=== PATIENT | female | born 1990 | race Caucasian/White ===

== ENCOUNTER 2020-05-29 16:09 | Emergency (ER) | payer BC ==
[~2020-05-29] VITALS: Ht 165.1 cm; Wt 45.4 kg
== END 2020-05-29 21:31 | disposition home or self-care (01) ==
LOC: ER 16:09
DX: N39.0 Urinary tract infection, site not specified (principal); B95.7 Other staphylococcus as the cause of diseases classified elsewhere; R31.0 Gross hematuria

== ENCOUNTER 2021-01-09 14:06 | Outpatient (CLI) | payer BC | END 2021-01-09 14:11 | disposition home or self-care (01) | LOC: RAD 14:06 | PROVIDERS: ATTEND General Practice | DX: M54.2 Cervicalgia (principal); M43.6 Torticollis ==

== ENCOUNTER 2025-01-15 12:26 | Outpatient (CLI) | payer OTHER | END 2025-01-15 12:28 | disposition home or self-care (01) | LOC: SONOGRAMA 12:26 | DX: N93.8 Other specified abnormal uterine and vaginal bleeding (principal) ==